=== PATIENT | male | born 1970 | race Caucasian/White ===

== ENCOUNTER 2023-02-08 22:37 | Emergency (ER) | payer OTHER, SELFPAY ==
--- NOTE | 2023-02-08 22:50 | ED_ITS ---
Discharge Plan Disposition Patient Disposition: Date/Time: 02/08/23 22:44 Clinical Impressions Clinical Impression: Cardiac arrest Discharge ED Provider: Mimi Nolan General Adult HPI General Stated complaint: resustation Time Seen by Provider: 02/08/23 22:49 History of Present Illness HPI narrative: Patient is a 52-year-old male brought in for cardiac arrest by EMS. History initially was unclear from EMS and all they were told is that he had injected sumatriptan and and was unresponsive. Patient's fianc? called and stated that he had a severe headache and attempted the sumatriptan and suddenly collapsed after that. EMS arrived on scene about 1 hour prior to arrival and they have been working him from an ACLS standpoint for over 30 minutes without any return of pulse. He was successfully intubated in the field with direct visualization and waveform capnography. Questionably had V-fib in the field was shocked multiple times given numerous doses of epinephrine without any improvement in his clinical condition. [facility] Disclaimer: The information contained in this section may have been updated after the patient was seen, as this information can be updated by other users. Social History Smoking Status: Unknown if ever smoked alcohol intake: never current occupational status: other Travel in the last 8 weeks: None ROS Obtained: Yes unobtainable due to mental condition Physical Exam General General appearance: other (In full cardiac arrest) Eye Eye exam: Present other (Pupils fixed and dilated) Respiratory Respiratory exam: Present other (Patient intubated bilateral breath sounds placed on ventilator with 4 waveform capnography confirming placement) Cardiovascular Cardiovascular exam: Present other (Chest compressions ongoing patient cyanotic and cool) Neurological Exam Neurological exam: Present other (GCS 3 T brainstem function noted) Medical Decision Making Hans Inquiry Pt receiving controlled substance: No Medical Decision Narrative: Is a 52-year-old male who from historical standpoint had a headache that preceded cardiac arrest most likely had a subarachnoid hemorrhage or significant intracranial hemorrhage that led to today's event. Given the fact that he had cardiac arrest in the setting of most likely had herniation but this cannot be definitively confirmed. He arrived in cardiac arrest after being down for an unknown period of time did not have a witnessed arrest and had at least 30 minutes of ongoing CPR without any return of circulation. We gave multiple additional doses of epinephrine and did limited bedside ultrasound during resuscitation demonstrating 0 cardiac activity. This in addition to the fact that he had no brainstem activity and has been down for an extended period of time demonstrated that there was no additional intervention that was possible in the emergency department to have a meaningful neurologic outcome. Patient's joey was at the bedside and I had a discussion with her and told her the clinical situation and allowed her to come in the last few minutes of the patient's life while we are completing chest compressions. On the last pulse check patient still had no cardiac activity at this point further resuscitative efforts were deemed medically futile and time of was called at 10:44 PM. We will offer the patient's loved ones on autopsy. Critical Care Critical Care Time Critical Care Time: No
--- NOTE | 2023-02-08 22:56 | EXP.DEATH.NO ---
Pronouncement Note Date and Time of Date of : 02/08/23 Time of : 22:44 PCOD Preliminary cause of : Cardiac arrest Summary Additional details: Patient came in for cardiac arrest after having a headache and administering sumatriptan at home. Had extended period of downtime over 30 minutes of ACLS and CPR multiple doses of epinephrine multiple shocks without any cardiac activity upon bedside ultrasound. It is presumed that the patient had a head bleed with a history of preceding cardiac arrest but this cannot be confirmed. Additional Data Confirmation of : no pulse, no respirations, no heart sounds, pupils fixed and dilated and other (Bedside ultrasound without any cardiac activity) Family: at bedside
--- NOTE | 2023-02-08 22:57 | PC.NURSE ---
CONTACTED [facility] AT THIS TIME. PATIENT'S FAMILY IS REQUESTING BODY BE HELD IN A COOLER UNTIL [facility]. CAREY BROTHERS, PSYCHIATRIC SECURITY NURSE SPEAKS WITH [facility] AND INFORMS THEM THE BODY WILL GO TO [facility] FOR [facility] WHILE WAITING FOR PICKUP. JANIYA NEGRON WITH [facility] GIVES A BODY RELEASE NUMBER [id number] SO IT CAN GO TO THE COOLER,HOWEVER STATES [facility] IS GOING TO FOLLOW THE CASE. [facility] IS AWARE OF PLAN, CAREY BROTHERS HAS SPOKEN WITH FATHER OF PATIENT FOR POC.
[2023-02-08 23:11] VITALS: BMI 27.3
--- NOTE | 2023-02-08 23:18 | PC.NURSE ---
2236: ARRIVAL VIA EMS, TRANSFER TO [facility]. CPR IN PROGRESS. RECEIVED REPORT FROM ESTER BALES, EMT-P. STATED CPR HAD BEEN IN PROGRESS SINCE 2147, WITH TWO PULSE CHECKS/RHYTHM CHECKS NOTED TO BE VFIB AND SUBSEQUENTLY SHOCKED WITHOUT A PULSE RETURN. 2237: EPINEPHRINE 1MG GIVEN. CPR CONTINUES. 2239: PULSE CHECK =PEA. CPR CONTINUED 2241:EPINEPHRINE 1 MG GIVEN, CPR CONTINUES 2243: PULSE CHECK, PEA. OF CARDIAC AREA REVEALS NO ACTIVITY 2244:TIME OF PER DR EASTMAN
--- NOTE | 2023-02-09 00:03 | PC.NURSE ---
GERRI HARRIS PRESENT IN ED
--- NOTE | 2023-02-09 00:03 | PC.NURSE ---
CONTACT FOR HOME: [facility], [id number], [facility]; [phone]
--- NOTE | 2023-02-09 00:41 | PC.NURSE ---
SPOKE WITH MIRIAM NEGRON AT THE [facility] AND UPDATED ON PATIENT BODY BEING IN CUSTODY OF [employer] WHO WILL TAKE TO THE [employer] ARCHITECT'S OFFICE AND THEN ON TO THE [facility] FOLLOWING.
== END 2023-02-09 00:45 | disposition expired ==
PROVIDERS: Emergency Provider Student in an Organized Health Care Education/Training Program
DX: I46.9 Cardiac arrest, cause unspecified (principal); R51.9 Headache, unspecified
CPT/HCPCS: 92950; 31500; 99285